=== PATIENT | male | born 1975 | race Caucasian/White ===

== ENCOUNTER 2019-12-04 12:16 | Emergency (ER) | payer SELFPAY ==
[~2019-12-04] VITALS: Ht 195.6 cm; Wt 106.1 kg
[2019-12-04] MEDS ORDERED: TETRACAINE 0.5% OPHTH SOLN 4 ML BTL (SINGLE DOSE ONLY) ONE (12:36)
[2019-12-04] MEDS ORDERED: FLUORESCEIN (FLUOR-I-STRIPS) 1 MG STRP ONE (12:37)
--- NOTE | 2019-12-04 12:50 | ED EENT ---
History of Present Illness General Chief Complaint: Eye Problems Stated Complaint: LT EYE SWOLLEN Nursing Triage Note: Patient reports his left eye has been reddened and irritated for 2 days, left eye swelling since yesterday, reports some yellow discharge. Source: patient Exam Limitations: no limitations History of Present Illness Date Seen by Provider: Dec 04, 2019 Time Seen by Provider: 12:44 Initial Comments This 44-year-old white male presents with a red left eye of 2 days' duration. Patient denies an acute injury to the eye, loss of visual acuity, or associated upper respiratory symptoms. The patient denies previous similar episode in the past, household members with a similar problem, or the use of either [id number] or prescription medications in the left eye. Allergies and Home Medications Allergies Coded Allergies: No Known Drug Allergies (Unverified , 12/04/19) Patient Home Medication List Home Medication List Reviewed: Yes Review of Systems Review of Systems Constitutional: no symptoms reported Eyes: Denies Blindness, Denies Blurred Vision; Drainage, Inflammation, Photophobia Ears: No Symptoms Reported Nose: no symptoms reported Mouth: no symptoms reported Throat: no symptoms reported Respiratory: no symptoms reported Cardiovascular: no symptoms reported Gastrointestinal: no symptoms reported Musculoskeletal: no symptoms reported Skin: no symptoms reported Neurological: No Symptoms Reported Hematologic/Lymphatic: No Symptoms Reported Immunological/Allergic: no symptoms reported Past Wlnimmv-Japipi-Tjhxzh Hx Past Med/Social Hx: Reviewed Nursing Past Med/Soc Hx Patient Social History Recent Foreign Travel: No Contact w/Someone Who Travel: No Recent Infectious Disease Expo: No Visual Acuity : Eye Location: Left Vision Acuity Degree: 20/30 Physical Exam Vital Signs Vital Signs - First Documented 12/04/19 12:25 Temp 36.3 Pulse 67 Resp 16 B/P (MAP) 154/100 (118) Pulse Ox 99 O2 Delivery Room Air Height, Weight, BMI Height: '" Weight: lbs. oz. kg; 27.00 BMI Method: General Appearance: WD/WN, no apparent distress Eyes: left eye conjunctival inflammation Ears: bilateral ear auricle normal Nose: normal inspection Mouth/Throat: normal mouth inspection Neck: normal inspection Cardiovascular: regular rate, rhythm Respiratory: lungs clear Gastrointestinal: normal bowel sounds, non tender Neurologic/Psychiatric: no motor/sensory deficits Skin: normal color, warm/dry Progress/Results/Core Measures Results/Orders My Orders Orders - BRITTANY MENDOZA MD Tetracaine 0.5% Ophth Meenakshi Sdv (Tetracai (12/04/19 12:36) Fluorescein Strips ([id number]) (12/04/19 12:37) Vital Signs/I&O 12/04/19 12:25 Temp 36.3 Pulse 67 Resp 16 B/P (MAP) 154/100 (118) Pulse Ox 99 O2 Delivery Room Air Blood Pressure Mean: 118 Progress Progress Note : Time: 12:48 Progress Note The patient was treated for his acute conjunctivitis with Cipro eyedrops and vascon A eyedrops. He was asked follow-up with the [facility] tomorrow. He was asked to return if any problems or questions. Departure Impression Primary Impression: Conjunctivitis Qualified Codes: B30.9 - Viral conjunctivitis, unspecified Disposition: HOME, SELF-CARE Condition: Unchanged Departure-Patient Inst. Decision time for Depature: 12:49 Referrals: [facility],LOCAL PHYSICIAN (PCP) Primary Care Physician Patient Instructions: Conjunctivitis ([place]) Add. Discharge Instructions: Cipro and Vascon A eye drops. Close follow up with [facility] tomorrow. Come back if any problems. All discharge instructions reviewed with patient and/or family. Voiced understanding. BRITTANY MENDOZA MD Dec 04, 2019 12:50
[2019-12-04 13:10] VITALS: BP 154/100
== END 2019-12-04 13:10 | disposition home or self-care (01) ==
LOC: ER FS 12:18
DX: H10.9 Unspecified conjunctivitis (principal)
CPT/HCPCS: 99282